=== PATIENT | female | born 1955 | race Caucasian/White ===

== ENCOUNTER → 2017-02-12 | Outpatient (CLI) | payer BC | LOC: MC.RAD 10:59 | DX: Z12.31 Encounter for screening mammogram for malignant neoplasm of breast (principal) ==

== ENCOUNTER → 2018-03-25 | Outpatient (CLI) | payer BC | LOC: MC.RAD 10:33 | DX: Z12.31 Encounter for screening mammogram for malignant neoplasm of breast (principal); Z98.82 Breast implant status ==

== ENCOUNTER → 2018-08-28 | Outpatient (CLI) | payer BC | LOC: COL.LAB 16:32 | DX: Z01.812 Encounter for preprocedural laboratory examination (principal) ==

== ENCOUNTER → 2020-06-17 | Outpatient (CLI) | payer BC | LOC: MC.RAD 08:30 | DX: Z12.31 Encounter for screening mammogram for malignant neoplasm of breast (principal) ==

== ENCOUNTER → 2022-01-12 | Outpatient (CLI) | payer BC | LOC: MC.RAD 08:30 | DX: Z12.31 Encounter for screening mammogram for malignant neoplasm of breast (principal) ==

== ENCOUNTER → 2023-06-10 | Outpatient (CLI) | payer BC ==
[~2023-06-10] VITALS: Ht 152.4 cm; Wt 102.3 kg
[~2023-06-10] MED LIST: ASPIRIN 81M81 MG/TA2 PO; B-121000 MCG PO; DITROPAN 5MG TAB5 MG PO; GLUCOSAMINE & C1 TAB PO; HCTZ12.5TAB PO; MASON NATURAL1000 MG PO; MULTI VITAMINS1 TAB PO; PRAVACHOL 40MG40 MG PO; RESVERATROL250 MG PO; TURMERIC500 MG PO; Triamcinolone 40 MG/ML 1 ML VIAL IJ SCH; VITAMIN D31000 I1 PO
[2023-06-10 07:06] VITALS: BP 142/87; PULSE 73; TEMP 97.7
[2023-06-10 08:00] VITALS: BP 1581/89; PULSE 77
== END ==
LOC: COL.RAD 06:41
DX: M54.16 Radiculopathy, lumbar region (principal)
CPT/HCPCS: J0665; J3301

== ENCOUNTER → 2023-08-30 | Outpatient (CLI) | payer BC ==
[~2023-08-30] MED LIST changes: -Triamcinolone 40 MG/ML 1 ML VIAL IJ SCH
== END ==
LOC: MC.RAD 10:22
DX: Z12.31 Encounter for screening mammogram for malignant neoplasm of breast (principal)